=== PATIENT | female | born 1965 | race Caucasian/White ===

== ENCOUNTER 2022-03-16 14:30 | Outpatient (CLI) | payer OTHER | END 2022-03-16 14:31 | disposition home or self-care (01) | LOC: BICULT 14:30 | PROVIDERS: ATTEND Nurse Practitioner Family | DX: T14.8XXA Other injury of unspecified body region, initial encounter (principal); L03.115 Cellulitis of right lower limb; R59.0 Localized enlarged lymph nodes | CPT/HCPCS: 76999 ==